=== PATIENT | female | born 1990 | race American Indian/Alaskan Native ===

== ENCOUNTER 2019-07-01 00:37 | Emergency (ER) | payer SELFPAY ==
[2019-07-01] MEDS ORDERED: ACETAMINOPHEN 325 MG TAB ONE (00:49)
[2019-07-01] MEDS ORDERED: ACETAMINOPHEN 325 MG TAB PO ONE ×2 (01:01→03:00)
[2019-07-01 01:17] LABS: Basophils % (Auto) 0.5 % (0.0-1.8); Eosinophils # (Auto) 0.1 K/mm3 (0.0-0.4); Hematocrit 27.4 % (30.3-42.9); Hemoglobin 9.1 gm/dl (10.1-14.3); Lymphocytes # (Auto) 1.5 K/mm3 (1.2-5.4); Mean Corpuscular HGB Conc 33 % (30-34); Monocytes # (Auto) 0.4 K/mm3 (0.0-0.8); Monocytes % (Auto) 7.7 % (0.0-7.3); Platelet Count 294 K/mm3 (140-440); Red Blood Count 4.33 M/mm3 (3.65-5.03); Red Cell Distribution Width 19.1 % (13.2-15.2)
[2019-07-01 01:34] LABS: Mean Corpuscular Volume 63 fl (79-97)
--- NOTE | 2019-07-01 02:24 | Ultrasound Report ---
OB ultrasound FINDINGS: twin is identified. Fetus a is in cephalic position with heart rate of 172 bpm. Appropriate measurements reveal an MA of 17 weeks 5 days for an EDC of 12/04/2019. This correlate s with the clinical dates. No definite anomalies are seen. Placenta is posterior and fundal in locati on. Cervix measures 3.6 cm in length and is closed. Fetus B is in transverse presentation with the he ad to maternal right.] Measurements for fetus B reveal a gestational age of 17 weeks 1 day for an EDC of 12/08/2019. Again this correlates with the clinical dates. heart rate is 162 bpm. No gross a bnormalities. JOSEP for fetus B is 4.8 cm and for fetus a is 5.6 cm. No definite abnormality seen. Signer Name: Ananth Joseph MD Signed: 07/01/2019 2:20 AM Workstation Name: [id number]
[2019-07-01 02:37] LABS: Bacteria,Urine 2+ /HPF (Negative); Bilirubin,Urine NEG (Negative); Blood,Urine NEG (Negative); Color,Urine Yellow (Yellow); Mucus,Urine FEW /HPF; Protein,Urine <15 mg/dL mg/dL (Negative); Urobilinogen,Urine < 2.0 mg/dL (<2.0)
--- NOTE | 2019-07-01 02:38 | Emergency Department Report ---
ED Abdominal Pain HPI - General Chief Complaint: Abdominal Pain Stated Complaint: PREG 17 WKS/ABD PAIN Source: patient Mode of arrival: Ambulatory Limitations: No Limitations - History of Present Illness Initial Comments: Patient is a A1 29-year-old -[place] female with a twin gestational age of 17 weeks who presented to the ED with complaint of right lateral abdomi nal pain for the last 12 or so after coughing hard. Patient states the pain has been persistent especially with movement or coughing. The patient stated that she has also had nasal and sinus congestion with dry cough for the last 2 days. Patient denies vaginal bleeding, vaginal discharge, urinary urgency and frequency, diarrhea, nausea and vomiting, chest pain or shortness of breath, fever or chills, trauma to injury or headache and heavy lifting. MD Complaint: abdominal pain, other (dry cough) -: Sudden, hour(s) (12) Location: RLQ, R flank Radiation: none Migration to: no migration Severity scale (0 -10): 10 Quality: aching, sharp Improves With: rest Worsens With: medication, other (cough) Associated Symptoms: denies other symptoms, other (cough). denies: nausea, vomiting, diarrhea, fever, chills, constipation, dysuria, hematemesis, melena, hematuria, anorexia, syncope - Related Data Previous Rx's Medication Instructions Recorded Last Taken Type Cyclobenzaprine [Flexeril] 10 mg PO Q8H PRN #15 tablet 07/01/19 Unknown Rx cephALEXin [Keflex] 500 mg PO Q6HR #40 capsule 07/01/19 Unknown Rx Allergies Allergy/AdvReac Type Severity Reaction Status Date / Time No Known Allergies Allergy Unverified 07/01/19 00:59 ED Review of Systems ROS: Stated complaint: PREG 17 WKS/ABD PAIN Other details as noted in HPI Constitutional: denies: chills, fever Eyes: denies: eye pain, eye discharge, vision change ENT: congestion. denies: ear pain, throat pain Respiratory: cough. denies: shortness of breath, wheezing Cardiovascular: denies: chest pain, palpitations Endocrine: no symptoms reported Gastrointestinal: abdominal pain. denies: nausea, diarrhea Genitourinary: denies: urgency, dysuria, discharge Musculoskeletal: denies: back pain, joint swelling, arthralgia Skin: denies: rash, lesions Neurological: denies: headache, weakness, paresthesias Psychiatric: denies: anxiety, depression Hematological/Lymphatic: denies: easy bleeding, easy bruising ED Past Medical Hx - Past Medical History Previous Medical History?: Yes Hx Hypertension: Yes - Surgical History Past Surgical History?: Yes Additional Surgical History: X 3. - Social History Smoking Status: Never Smoker Substance Use Type: None - Medications Home Medications: Home Medications Medication Instructions Recorded Confirmed Last Taken Type Cyclobenzaprine [Flexeril] 10 mg PO Q8H PRN #15 tablet 07/01/19 Unknown Rx cephALEXin [Keflex] 500 mg PO Q6HR #40 capsule 07/01/19 Unknown Rx ED Physical Exam - General Limitations: No Limitations General appearance: alert, in no apparent distress - Head Head exam: Present: atraumatic, normocephalic, normal inspection - Eye Eye exam: Present: normal appearance, PERRL, EOMI - ENT ENT exam: Present: normal exam, normal orophraynx, mucous membranes moist, TM's normal bilaterally, normal external ear exam - Neck Neck exam: Present: normal inspection, full ROM. Absent: tenderness - Respiratory Respiratory exam: Present: normal lung sounds bilaterally. Absent: respiratory distress, wheezes, rales, rhonchi, chest wall tenderness, accessory muscle use - Cardiovascular Cardiovascular Exam: Present: normal rhythm, tachycardia, normal heart sounds. Absent: systolic murmur, diastolic murmur, rubs, gallop - GI/Abdominal GI/Abdominal exam: Present: soft, tenderness (mildly tender right lower abdomen and right upper quadrant tenderness, no guarding; grossly gravid abdomen), normal bowel sounds. Absent: guarding, rebound, hyperactive bowel sounds, hypoactive bowel sounds, organomegaly - Extremities Exam Extremities exam: Present: normal inspection, full ROM, normal capillary refill - Back Exam Back exam: Present: normal inspection, full ROM. Absent: tenderness, muscle spasm, paraspinal tenderness - Neurological Exam Neurological exam: Present: alert, oriented X3, CN II-XII intact, normal gait, r eflexes normal - Psychiatric Psychiatric exam: Present: normal affect, normal mood - Skin Skin exam: Present: warm, dry, intact, normal color. Absent: rash ED Course Vital Signs 07/01/19 00:41 Temperature 98.6 F Pulse Rate 102 H Respiratory 18 Rate Blood Pressure 156/91 O2 Sat by Pulse 100 Oximetry ED Medical Decision Making - Lab Data Result diagrams: 07/01/19 01:04 - Radiology Data Radiology results: report reviewed, image reviewed Findings [facility] [address] [place] [address] Ultrasound Report Signed Patient: SONIA ESCOBAR MR#: [id number] : 1990 Acct:[id number] Age/Sex: 29 / F ADM Date: 07/01/19 Loc: ED Attending Dr: Ordering Physician: MORELIA TAPIA Date of Service: 07/01/19 Procedure(s): US OB >= 14 wk fetus add gest Accession Number(s): [id number] cc: MORELIA TAPIA OB ultrasound FINDINGS: twin is identified. Fetus a is in cephalic position with heart rate of 172 bpm. Appropriate measurements reveal an MA of 17 weeks 5 days for an EDC of 12/04/2019. This correlates with the clinical dates. No definite anomalies are seen. Placenta is posterior and fundal in location. Cervix measures 3.6 cm in length and is closed. Fetus B is in trans verse presentation with the head to maternal right.] Measurements for fetus B reveal a gestational age of 17 weeks 1 day for an EDC of 12/08/2019. Again this correlates with the clinical dates. heart rate is 162 bpm. No gross abnormalities. JOSEP for fetus B is 4.8 cm and for fetus a is 5.6 cm. No definite abnormality seen. Signer Name: Ananth Joseph MD Signed: 07/01/2019 2:20 AM Workstation Name: [id number] Transcribed By: Dictated By: Ananth Joseph MD Electronically Authenticated By: Ananth Joseph MD Signed Date/Time: 07/01/19219 DD/ 5 TD/TT: - Medical Decision Making This is a 29-year-old female who is A1 and is approximately 17 weeks twin gestation who presented to the ED with right lateral abdominal pain after cou ghing hard. In the ED, patient is alert and oriented 3 and is not in any distress but appears uncomfortable whenever she coughs. Lab test results were reviewed and [place] [id number] . Urinalysis shows acute urinary tract infection. Transvaginal ultrasound shows twin is identified. Fetus a is in cephalic position with heart rate of 172 bpm. Appropriate measurements reveal an MA of 17 weeks 5 days for an EDC of 12/04/2019. This correlates with the clinical dates. No definite anomalies are seen. Placenta is posterior and fundal in location. Cervix measures 3.6 cm in length and is closed. Fetus B is in transverse presentation with the head to maternal right.] Measurements for fetus B reveal a gestational age of 17 weeks 1 day for an EDC of 12/08/2019. Again this correlates with the clinical dates. heart rate is 162 bpm. No gross abnormalities. JOSEP for fetus B is 4.8 cm and for fetus a is 5.6 cm. No definite abnormality seen. Patient was treated for pain in the ED with Tylenol and Flexeril. On reevaluation, patient's pain is well-controlled with medications. Patient was discharged home on muscle relaxants and advised to take Tylenol as needed for pain. Patient was also discharged home on Keflex for urinary tract infection. Patient was advised to follow up with [facility] physician in 5-7 days for reevaluation. Meanwhile patient was advised to maintain a complete pelvic rest for the next 7 days and follow up with her [facility] physician or return to the ED immediately if symptoms get worse. - Differential Diagnosis Abdominal pain in ; Muscle strain of abdomen; UTI; bronchitis; URI Critical care attestation.: If time is entered above; I have spent that time in minutes in the direct care of this critically ill patient, excluding procedure time. ED Disposition Clinical Impression: Acute upper respiratory infection, Acute urinary tract infection Acute bronchitis Qualifiers: Bronchitis organism: other organism Qualified Code(s): J20.8 - Acute bronchitis due to other specified organisms Strain of abdominal muscle Qualifiers: Encounter type: initial encounter Qualified Code(s): S39.011A - Strain of muscle, fascia and tendon of abdomen, initial encounter Disposition: - TO HOME OR SELFCARE Is pt being admited?: No Does the pt Need Aspirin: No Condition: Stable Instructions: Muscle Strain (ED), Upper Respiratory Infection (ED), Acute Br onchitis (ED), Abdominal Pain (ED), Urinary Tract Infection in Women (ED) Additional Instructions: Maintain a complete pelvic rest, take Tylenol as needed for pain and follow-up with the [facility] physician in 5-7 days for reevaluation. Return to the emergency department immediately if symptoms get worse. Prescriptions: Cyclobenzaprine [Flexeril] 10 mg PO Q8H PRN #15 tablet PRN Reason: Muscle Spasm cephALEXin [Keflex] 500 mg PO Q6HR #40 capsule Referrals: DUONG PRESTON MD [Staff Physician] - 3-5 Days Time of Disposition: 02:45 Print Language: UKRAINIAN
[2019-07-01] MEDS ORDERED: CYCLOBENZAPRINE 10 MG TAB PO ONE (02:48)
[2019-07-01] MEDS ORDERED: cephALEXin 500 MG CAP PO ONE (02:56)
[2019-07-01 04:20] VITALS: BP 154/94
== END 2019-07-01 03:35 | disposition home or self-care (01) ==
LOC: ED 00:37
DX: O99.512 Diseases of the respiratory system complicating pregnancy, second trimester (principal); O9A.212 Injury, poisoning and certain other consequences of external causes complicating pregnancy, second trimester; S39.011A Strain of muscle, fascia and tendon of abdomen, initial encounter; J20.8 Acute bronchitis due to other specified organisms; J06.9 Acute upper respiratory infection, unspecified; I10 Essential (primary) hypertension; Z98.890 Other specified postprocedural states; Z3A.17 17 weeks gestation of pregnancy; X58.XXXA Exposure to other specified factors, initial encounter; Y93.89 Activity, other specified; Y92.89 Other specified places as the place of occurrence of the external cause; Y99.8 Other external cause status
CPT/HCPCS: 36415; 76805; 76810; 81001; 84702; 85025; 87086

== ENCOUNTER 2019-10-01 03:12 | Observation (INO) | payer MEDICAID ==
[2019-10-01] MEDS ORDERED: LACTATED RINGERS 500 ML IV ONE (03:26)
[2019-10-01 04:16] LABS: Amorphous Crystals,Urine Few; Bacteria,Urine 4+ /HPF (Negative); Bilirubin,Urine NEG (Negative); Blood,Urine SM (Negative); Color,Urine Yellow (Yellow); Mucus,Urine 1+ /HPF; Protein,Urine <15 mg/dL mg/dL (Negative); Urobilinogen,Urine < 2.0 mg/dL (<2.0)
--- NOTE | 2019-10-01 06:33 | Ultrasound Report ---
CLINICAL DATA: Twin gestation TECHNICAL DATA: Document breath, motion, gestational age, tone, and fluid. FINDINGS: FETUS A respiration, tone, and motion are well visualized and normal. Amniotic fluid volume is normal. Biophysical profile score is 8/8. The lower uterine segment is evaluated and there is no evidence of placenta previa. heart rate is 137 IMPRESSION: The biophysical profile score is 8/8 for fetus A. Signer Name: Eleazar Dickerson MD Signed: 10/01/2019 6:29 AM Workstation Name: [id number]
--- NOTE | 2019-10-01 06:34 | Ultrasound Report ---
CLINICAL DATA: Biophysical profile for fetus B twin gestation TECHNICAL DATA: Document breath, motion, gestational age, tone, and fluid. FINDINGS: respiration, tone, and motion are well visualized and normal. Amniotic fluid volume is normal. Biophysical profile score is 8/8. The lower uterine segment is evaluated and there is no evidence of placenta previa. heart rate is 142 IMPRESSION: The biophysical profile score is 8/8 for fetus B. Signer Name: Eleazar Dickerson MD Signed: 10/01/2019 6:30 AM Workstation Name: [id number]
--- NOTE | 2019-10-01 06:37 | Ultrasound Report ---
ULTRASOUND OBSTETRIC Indication: rule out abruption Findings: There is a twin, living intrauterine , fetus A is in the cephalic position on the right and fetus B position on the left The placenta is predominantly anterior fundally for fetus A and fundally and left lateral for fetus B . The ovaries are normal. There is no free fluid. Impression: Twin gestation without evidence of placenta abruptio Signer Name: Eleazar Dickerson MD Signed: 10/01/2019 6:33 AM Workstation Name: [email or web address]
[2019-10-01 06:57] LABS: Hematocrit 22.2 % (30.3-42.9); Hemoglobin 7.1 gm/dl (10.1-14.3); Mean Corpuscular HGB Conc 32 % (30-34); Platelet Count 346 K/mm3 (140-440); Red Blood Count 3.81 M/mm3 (3.65-5.03); Red Cell Distribution Width 18.4 % (13.2-15.2)
[2019-10-01 07:05] LABS: Mean Corpuscular Volume 58 fl (79-97)
[2019-10-01 07:24] LABS: Alanine Aminotransferase 7 units/L (7-56); Uric Acid 3.9 mg/dL (3.5-7.6)
[2019-10-01] MEDS ORDERED: AMPICILLIN 2 GM in SODIUM CHLORIDE 0.9% 50 ML IV NR (08:14)
[2019-10-01] MEDS ORDERED: SODIUM CHLORIDE 0.9% 1000 ML 1,000 ML ONE (10:25)
[2019-10-01] MEDS ORDERED: SODIUM CHLORIDE 0.9% 500 ML 500 ML IV NR (12:00)
[2019-10-01] MEDS ORDERED: AMPICILLIN/NS 2 GM/100 ML 2 GM/100 ML BAG IV NR (12:00)
[2019-10-01 14:28] VITALS: BP 149/79
[2019-10-01 15:24] LABS: Hematocrit 25.1 % (30.3-42.9); Hemoglobin 8.1 gm/dl (10.1-14.3)
--- NOTE | 2019-10-01 15:29 | History and Physical Report ---
History of Present Illness Date of examination: 10/01/19 Date of admission: 10/01/19 03:16 Chief complaint: lower abd pains. History of present illness: Patient is known to be with twins, has not established care with any Ob grps. Past History - Obstetrical History Expected Date of Delivery: 12/07/19 Actual Gestation: 30 Week(s) 3 Day(s) : 3 Medications and Allergies Allergies Allergy/AdvReac Type Severity Reaction Status Date / Time No Known Allergies Allergy Unverified 07/01/19 00:59 Home Medications Medication Instructions Recorded Confirmed Last Taken Type Cyclobenzaprine [Flexeril] 10 mg PO Q8H PRN #15 tablet 07/01/19 Unknown Rx cephALEXin [Keflex] 500 mg PO Q6HR #40 capsule 07/01/19 Unknown Rx Active Meds: Active Medications Sodium Chloride (Nacl 0.9% 500 Ml) 500 mls @ 0 mls/hr IV ONCE NR Stop: 10/01/19 16:00 Ampicillin Sodium (Ampicillin/Ns 2 Gm/100 Ml) 2 gm in 100 mls @ 100 mls/hr IV ONCE NR Stop: 10/01/19 20:00 Last Admin: 10/01/19 14:47 Dose: 100 mls/hr Documented by: Review of Systems All systems: negative - Vital Signs Vital signs: Vital Signs Pulse BP 89 145/92 10/01/19 03:31 10/01/19 03:31 Temp Pulse Resp BP Pulse Ox 98.7 F 78 16 149/79 100 10/01/19 08:43 10/01/19 14:26 10/01/19 08:43 10/01/19 14:26 10/01/19 14:22 Results Result Diagrams: 10/01/19 06:45 10/01/19 06:45 Abnormal lab results 10/01/19 10/01/19 10/01/19 Range/Units 03:25 03:45 06:45 Hgb 7.1 L (10.1-14.3) gm/dl Hct 22.2 L (30.3-42.9) % MCV 58 L (79-97) fl MCH 19 L (28-32) pg RDW 18.4 H (13.2-15.2) % Creatinine (0.7-1.2) mg/dL Urine WBC (Auto) 57.0 H (0.0-6.0) /HPF U Epithel Cells (Auto) 21.0 H (0-13.0) /HPF Crossmatch See Detail 10/01/19 Range/Units 06:45 Hgb (10.1-14.3) gm/dl Hct (30.3-42.9) % MCV (79-97) fl MCH (28-32) pg RDW (13.2-15.2) % Creatinine 0.4 L (0.7-1.2) mg/dL Urine WBC (Auto) (0.0-6.0) /HPF U Epithel Cells (Auto) (0-13.0) /HPF Crossmatch reviewed Ultrasound: report reviewed Assessment and Plan - Patient Problems (1) UTI (urinary tract infection) Current Visit: Yes Status: Acute (2) Twin gestation in third trimester Current Visit: Yes Status: Acute (3) Anemia affecting Current Visit: Yes Status: Acute Plan to address problem: Patient was started on ampicillin IV and will be transfused 1 unit of rbc before going home to continue with po ampicillin. Patient was encouraged to establish care with an OB rebecca.
== END 2019-10-01 16:38 | disposition home or self-care (01) ==
LOC: LD 03:12 → TRG 03:12 → LD 03:16 → TRG 03:18
PROVIDERS: ADMIT Obstetrics & Gynecology; ATTEND Obstetrics & Gynecology
DX: O30.003 Twin pregnancy, unspecified number of placenta and unspecified number of amniotic sacs, third trimester (principal); O99.013 Anemia complicating pregnancy, third trimester; O23.43 Unspecified infection of urinary tract in pregnancy, third trimester; Z3A.30 30 weeks gestation of pregnancy
CPT/HCPCS: 36415; 59025; 76815; 76819; 81001; 82565; 83615; 84450; 84460; 84550; 85014; 85018; 85027; 86850; 86900; 86901; 86920; 87086; 96365; G0378; J0290; J7030; J7120; P9016; 87186; 96360